=== PATIENT | female | born 1955 | race Caucasian/White ===

== ENCOUNTER 2016-12-06 12:07 | Emergency (ER) | payer MEDICAID ==
[2016-12-06 12:08] VITALS: BMI 25.8
[2016-12-06 12:11] VITALS: RESP 18
--- NOTE | 2016-12-06 12:40 | C.PDOC ---
History Of Present Illness 61 y/o F c PMHx HTN, hypothyroidism p/w L sided back pain radiating down back/ lateral L leg x 3 days. Patient states she has had this pain before but more severe this time. Has not attempted to take any pain medication. Denies fever, recent surgery or procedure, swelling, numbness, weakness, urinary or bowel symptoms. Time Seen by Provider: 12/06/16 12:19 Chief Complaint (Nursing): Lower Extremity Problem/Injury Past Medical History Vital Signs: Last Vital Signs Temp 97.9 F 12/06/16 12:11 Pulse 73 12/06/16 12:11 Resp 18 12/06/16 12:11 BP 170/88 H 12/06/16 12:11 Pulse Ox 99 12/06/16 12:40 - Medical History PMH: HTN, Hyperlipidemia, Hypothyroidism, Sleep Apnea Denies: Chronic Kidney Disease Surgical History: Tonsillectomy - [facility] Procedures TONSILLECTOMY (01/12/15) Family History: States: Unknown Family Hx - Social History Hx Alcohol Use: No Hx Substance Use: No - Immunization History Hx Tetanus Toxoid Vaccination: No Hx Influenza Vaccination: No Hx Pneumococcal Vaccination: No Review Of Systems Except As Marked, All Systems Reviewed And Found Negative. Constitutional: Negative for: Fever Respiratory: Negative for: Shortness of Breath Physical Exam - Physical Exam Additional Physical Exam Comments: Constitutional: No acute distress. Head: Normocephalic. Atraumatic. Eyes: PERRL. ENT: Moist mucous membranes. Neck: Supple. Cardiovascular: Regular rate. Radial pulse 2+ bilaterally. Chest: No tenderness. Respiratory: Clear to auscultation bilaterally. GI: Soft. Nontender. Nondistended. Back: Left Paraspinal Tenderness. + straight leg raising. No Midline Tenderness Musculoskeletal: No tenderness or swelling of extremities. Skin: No rash. Neurologic: Alert, no focal deficit. Sensation to light touch intact B/L to legs and saddle area. Motor 5/5x4 ED Course And Treatment O2 Sat by Pulse Oximetry: 99 Medical Decision Making Medical Decision Making: Toradol for pain. Prescribe Robaxin. F/u PMD, instructed to return to ER for worsening pain, fever, vomiting, numbness, weakness, urinary or bowel changes. Disposition - Disposition Disposition: HOME/ ROUTINE Disposition Time: 12:42 Condition: STABLE Prescriptions: Famotidine [Pepcid] 1 tab PO BID #14 tab Ibuprofen [Motrin] 600 mg PO Q6 #25 tab Methocarbamol [Robaxin-750] 1 tab PO Q8H #12 tablet Instructions: Sciatica (ED) - Clinical Impression Clinical Impression: Sciatica
[2016-12-06 12:54] VITALS: BP 179/85; PULSE 88; TEMP 98.3; O2SAT 97
== END 2016-12-06 12:54 | disposition home or self-care (01) ==
LOC: C.ER 12:07
DX: M54.30 Sciatica, unspecified side (principal)
CPT/HCPCS: 96372; 99284; J1885